=== PATIENT | male | born 1995 | race Caucasian/White ===

== ENCOUNTER 2016-10-01 04:32 | Observation (INO) | payer OTHER, BC ==
--- OUTSIDE RECORDS SUMMARY | 2016-10-01 04:46 | XMS REPORT | Continuity of Care Document ---
:1995 Author Organization [facility] ([facility]) Address [address] [place] [address] Phone [phone] Care Team Providers Name Role Phone Andre Noble Primary Care Provider [phone] Source Comments This disclosure is being made pursuant to the Care Everywhere program, applicable federal and state laws, and may not contain all informaitonavailable regarding this patient.[facility] ([facility]) Active Allergies and Adverse Reactions Allergen Noted Date Severity Reactions Comments Milk 02/11/2014 Angioedema Red Dye 12/04/2013 Urticaria (Hives),Angioedema Parents report it is an allergy to red dye number 5 that is in ham Current Medications Prescription Sig. Disp. Refills Start Date End Date Status omeprazole 40 mg Take 1 capsule 30 capsule 11 04/19/2016 Active enteric coated capsule (40 mg total) by mouth daily. fluticasone (FLOVENT 2 Puffs every 12 12 g 11 04/19/2016 Active HFA 220) inhaler hours. 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 Sinus bradycardia 02/12/2014 Resolved Problems Problem Noted Date Resolved Date Hematemesis 12/04/2013 12/04/2013 Esophageal bleeding 12/03/2013 12/04/2013 Most Recent Encounters Date Type Specialty Providers Description 07/26/2016 [facility] Pediatrics - Specialty Jacy, Dx: Esophagitis, Encounter Kenia Muse MD eosinophilic Doris Marcelino, (Primary Dx) Marquise Blanc RN 07/25/2016 Telephone Pediatrics - Specialty Doris Worthington Chief Comp: Procedure 07/25/2016 Anesthesia Event Pediatrics - Specialty Doris Marcelino CRNA 07/19/2016 Orders/Notes Pediatric Aditi Jalloh, Dx: Esophagitis, Gastroenterology YUNG eosinophilic (Primary Dx) 07/12/2016 Telephone Pediatric Radha Wilson, Chief Comp: Gastroenterology RN Scheduling Immunizations Name Dates Previously Given Next Due Influenza, quadrivalent PF 01/21/2014 Social History Tobacco Use Types Packs/Day Years Used Date Passive Smoke Exposure - Never Smoker Smokeless Tobacco: Never Used Alcohol Use Drinks/Week oz/Week Comments No Last Filed Vital Signs Vital Sign Reading Time Taken Blood Pressure 125/99 07/26/2016 11:30 AM CDT Pulse 45 04/19/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 Temperature 36 C (96.8 F) 07/26/2016 11:45 AM CDT Respiratory Rate 18 07/26/2016 8:15 AM CDT Height 1.805 m (5' 11.06") 07/26/2016 8:16 AM CDT Weight 83.5 kg (184 lb 1.4 oz) 07/26/2016 8:16 AM CDT Body Mass Index 25.63 07/26/2016 8:16 AM CDT Oxygen Saturation 100% 07/26/2016 11:30 AM CDT Plan of Care Date Type Specialty Providers Description 10/25/2016 Appointment Pediatric Jacy, Chief Comp: Patient Gastroenterology Kenia Muse MD Reported Reason For [address] [place] [address] [phone] (Fax) 03/06/2017 Appointment Pediatric Cardiology Felipe Hong, Chief Comp: Patient Justice Hinton MD Reported Reason For [address] [place] [address] [phone] (Fax) 03/06/2017 [facility] Pediatric Cardiology Felipe Hong, Dx: Atrioventricular Encounter Jutsice Hinton MD block, first degree [address] [place] [address] [phone] (Fax) 03/06/2017 Appointment Pediatric Cardiology Felipe Hong, Chief Comp: Patient Justice Hinton MD Reported Reason For [address] [place] [address] [phone] (Fax) Health Maintenance Due Date Last Done Comments Hepatitis B Vaccine (1 of 3 - Primary 1996 Series) HPV Vaccine (1 of 3 - Male 3 Dose 11/09/2007 Series) Tdap Vaccine 11/09/2007 Meningococcal Vaccine (1 of 1) 2012 Lipid Disorder Screening 2014 MMR Vaccine 2014 Td Vaccine 2014 Varicella Vaccine (1 of 2 - Adult - 2014 No Evidence of Immunity) Influenza Vaccine: Seasonal (Season 11/15/2016 03/03/2015 (Previously Ended) completed), 01/21/2014 Results from Last 3 Months ENDOSCOPY, PED UPPER GI (EGD) (08/01/2016 2:27 PM) Kenia Welsh MD 08/01/20162:27 PM PEDIATRIC GASTROENTEROLOGY- Upper endoscopy Pediatric Gastroenterology Name: Keara Li Dr. Aquino [facility] #:[id number] Procedure Location: [facility] Ped Procedure Unit Date: 1995; Age: 20 y.o.; Sex: male Procedure Date: 07/26/2016 INDICATION: Upper endoscopy to evaluate for EoE CONSENT FOR OPERATION OR PROCEDURE:Once the risks and benefits of this procedure were discussed with the patient's father and their questions were answered, written informed consent was obtained from the patient as he is 20. HISTORY OF PRESENT ILLNESS: Keara Li is a 20 y.o. male with a history of EoE and non-compliance now on regular use of fluticasone and omeprazole with no symptoms.This procedure is being performed to evaluate for improvement of EoE. PHYSICAL EXAM: ASA status 1. Exam as per nursing sedation team note. MEDICATION NOTES:As per nursing sedation team note. PHOTOGRAPH:Esophagus BIOPSY:Esophagus OPERATION/PROCEDURE: Upper endoscopy: The patient was placed in the left lateral position.Once the patient was comfortable and sedated, the throat was sprayed with 4% Lidocaine sprayand a bite block was placed in between the teeth.The patient's esophagus was easily intubated with an Olympus 190 endoscope.The endoscope was advanced throughout the esophagus.There were superficial ulcerations, linear furrowing, nodularity, edema of the esophagus. The endoscope was advanced into the stomach.The gastric mucosa appeared within normal limits. Air was removed from the stomach and the endoscope was pulled back into the esophagus.3 biopsies were taken from the distal esophagus and another 3 biopsies were taken from the mid esophagus.The endoscope was advanced back into the stomach and the remaining amount of air was removed.The endoscope was then completely removed, and the patient tolerated this procedure well without any complications. IMPRESSION: 1. Superficial ulcerations, linear furrowing, nodularity, edema of the esophagus PLAN:We explained our findings to the family after the procedure.We will notify them about the biopsy results once they are available. 08/01/16: Called and left message on mother's voicemail with results of biopsies - improved but still with changes consistent with EoE. I requested that the family call back with further info on how frequently Keara has been taking his medications. Referral to adult gastroenterology made - will continue to follow Keara until care is transferred. A. Esophagus, mid, biopsy: Squamous mucosa with epithelial reactive changes and increased intraepithelial eosinophils (up to 25 per HPF). See comment. B. Esophagus, distal, biopsy: Squamous mucosa with epithelial reactive changes and intraepithelial eosinophils (up to 3 per HPF). Cardia-type mucosa within normal limits. I have personally reviewed this case and edited the report as necessary. Kenia Ayala MD ESOPHAGOSCOPYwith biopsy, single or multiple ([id number]) SURGICAL PATHOLOGY EXAM (07/26/2016 10:06 AM) Component Value Range Case Report Surgical Pathology Case: [id number] Authorizing Provider:Kenia Ayala MD Collected: 07/26/2016 10:06 AM [facility] Hospital: Procedure & Diagnostic Suite Pathologist: Latrell Ma MD Specimens: A) - Esophagus, MID ESO B) - Esophagus, DISTAL ESO Diagnosis A.Esophagus, mid, biopsy: Squamous mucosa with epithelial reactive changes and increased intraepithelial eosinophils (up to 25 per HPF). See comment. B.Esophagus, distal, biopsy: Squamous mucosa with epithelial reactive changes and intraepithelial eosinophils (up to 3 per HPF). Cardia-type mucosa within normal limits. I have personally reviewed this case and edited the report as necessary. Comment The squamous mucosa shows reactive epithelial changes including spongiosis, papillary elongation, and basal hyperplasia. The eosinophils are present throughout the mucosa including surface involvement . Minimal clustering is present. There is degranulation. The findings are consistent with active eosinophilic esophagitis. The proximal biopsy shows greater involvement by eosinophils. The current spe cimen is compared to the patient's prior biopsy ([id number]), and shows mild improvement. Clinical Information 20 y.o. M with known EoE on swallowed fluticasone and asymptomatic. Specimens obtained: Esophagus (mid and distal) Visual impression: -Upper endoscopy: superficial ulcerations, linear furrowing, nodularity, edema of the esophagus If consistent with possible EoE, please provide detail on estimate of eosinophil count per HPF, epithelial clustering, degranulation, basal cell and/ or papillary hyperplasia Gross Description A.Received in formalin, in a container labeled [facility] number, and "MID ESO", are three oliveira-pink soft tissue fragments, 0.2 to 0.4 cm in greatest dimension. Submitted in toto in B1. LRD/rls B.Received in formalin, in a container labeled [facility] number, and "DISTAL ESO", are three oliveira-pink soft tissue fragments, 0.2 to 0.4 cm in greatest dimension. Submitted in toto in A1. LRD/rls Microscopic Description Microscopic examination performed and supports the diagnosis. Performed by: Anabella Rene MD, R2 Specimen Tissue - Esophagus
[2016-10-01 04:53] LABS: Hematocrit 43.9 % (42.0-52.0); Hemoglobin 15.3 gm/dL (13.5-18.0); Mean Cell Volume 91.6 fl (78-100); Mean Corpuscular Hemoglobin 31.9 pg (27-31); Mean Corpuscular Hgb Conc 34.9 g/dl (32-36); Mean Platelet Volume 10.6 fl (6.0-9.5); Neutrophil # 3.7 K/mm3 (1.3-6.0); Neutrophil % 53.4 % (42-75.0); Platelet Count 255 K/mm3 (150-450); Red Blood Count 4.79 M/mm3 (4.7-6.0); White Blood Count 6.9 K/mm3 (4.0-10.5)
[2016-10-01 04:58] LABS: INR 1.1 INR (0.90-1.10); Prothrombin Time (Patient) 11.4 Seconds (9.4-11.4)
[2016-10-01 05:03] LABS: Albumin * 3.9 gm/dl (3.4-5.0); Anion Gap 16.3 mmol/L (6.8-13.8); BUN/Creatinine Ratio 18.9 (9.0-21.6); Bilirubin, Total 0.8 mg/dL (0.0-1.1); Ca. Corrected For Albumin 8.7 mg/dL (8.4-10.2); Calcium * 8.9 mg/dL (7.9-10.9); Carbon Dioxide 24.2 mmol/L (24-32.6); Potassium 3.5 mmol/L (3.4-4.6); Total Protein 7.5 gm/dL (6.2-8.2)
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
[2016-10-01 05:37] LABS: Urine Bilirubin Negative (NEGATIVE); Urine Blood 250 /ul (NEGATIVE); Urine Ketone Negative (NEGATIVE); Urine Nitrite Negative (NEGATIVE); Urine Protein 15 mg/dL (NEGATIVE); Urine Specific Gravity 1.015 SP.GR. (1.005-1.030); Urine Urobilinogen Normal (NORMAL); Urine pH 5.5 pH (5.0-7.0)
[2016-10-01 05:44] LABS: Cocaine Ur Negative (NEGATIVE); Urine Barbiturate Negative (NEGATIVE); Urine Benzodiazepines Negative (NEGATIVE); Urine Opiates Negative (NEGATIVE); Urine PCP Negative (NEGATIVE); Urine THC Negative (NEGATIVE)
[2016-10-01 05:52] LABS: Urine Appearance Clear; Urine Bacteria None Seen; Urine Color Yellow; Urine WBC 0-5 /hpf (0-5)
[2016-10-01] MEDS ORDERED: MORPHINE SULFATE 4 MG/ML SYRG IV ONE (06:37)
[2016-10-01] MEDS ORDERED: MORPHINE SULFATE 4 MG/ML SYRG IV PRN (06:37)
[2016-10-01] MEDS ORDERED: HYDROcodone/ACETAMINOPHEN 1 EACH TABLET PO PRN (06:38)
[2016-10-01] MEDS ORDERED: HYDROcodone/ACETAMINOPHEN 1 EACH TABLET PO ONE (06:39)
[2016-10-01] MEDS ORDERED: ONDANSETRON HCL/PF 2 MG/ML VIAL IV PRN (06:40)
--- OUTSIDE RECORDS SUMMARY | 2016-10-01 06:40 | XMS REPORT | Continuity of Care Document ---
:1995 Author Organization [facility] ([facility]) Address [address] [place] [address] Phone [phone] Care Team Providers Name Role Phone Andre Noble Primary Care Provider [phone] Source Comments This disclosure is being made pursuant to the Care Everywhere program, applicable federal and state laws, and may not contain all informaitonavailable regarding this patient.[facility] ([facility]) Active Allergies and Adverse Reactions Allergen Noted [...] Encounters Date Type Specialty Providers Description 07/26/2016 [facility] Pediatrics - Specialty Jacy, Dx: Esophagitis, [...] AM CDT Pulse 45 04/19/2016 1:44 PM [employer]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 Temperature 36 C (96.8 F) 07/26/2016 11:45 [...] Reported Reason For [address] [place] [address] [phone] (Fax) 03/06/2017 Appointment Pediatric Cardiology Felipe Hong, Chief Comp: Patient Justice Hinton MD Reported Reason For [address] [place] [address] [phone] (Fax) 03/06/2017 [facility] Pediatric Cardiology Felipe Hong, Dx: Atrioventricular Encounter Justice Hinton MD block, first degree [address] [place] [address] [phone] (Fax) 03/06/2017 Appointment Pediatric Cardiology Felipe Hong, Chief Comp: Patient Justice Hinton MD Reported Reason For [address] [place] [address] [phone] (Fax) Health Maintenance Due Date Last Done [...] Pediatric Gastroenterology Name: Keara Li Dr. Aquino [facility] #:[id number] Procedure Location: [facility] Ped Procedure Unit Date: 1995; Age: 20 [...] Ayala MD ESOPHAGOSCOPYwith biopsy, single or multiple ([id number]) SURGICAL PATHOLOGY EXAM (07/26/2016 10:06 AM) Component Value Range Case Report Surgical Pathology Case: [id number] Authorizing Provider:Kenia Ayala MD Collected: 07/26/2016 10:06 AM [facility] Hospital: Procedure [...] is compared to the patient's prior biopsy ([id number]), and shows mild improvement. Clinical Information 20 [...] A.Received in formalin, in a container labeled [facility] number, and "MID ESO", are three oliveira-pink soft tissue fragments, 0.2 to 0.4 cm in greatest dimension. Submitted in toto in B1. LRD/rls B.Received in formalin, in a container labeled [facility], [facility] number, and "DISTAL ESO", are three oliveira-pink soft tissue fragments, 0.2 to 0.4 cm in greatest dimension. Submitted in toto in A1. LRD/rls Microscopic Description Microscopic examination performed and supports the diagnosis. Performed by: Anabella Rene MD, R2 Specimen Tissue - Esophagus
[2016-10-01] MEDS ORDERED: MORPHINE SULFATE 4 MG/ML SYRG ONE (06:43)
[2016-10-01] MEDS ORDERED: MORPHINE SULFATE 2 MG/ML DISP.SYRIN IV PRN (07:16)
[2016-10-01] MEDS: RINGERS SOLUTION,LACTATED 1,000 ML IV PRN ×2 (11:54→17:54)
[2016-10-01] MEDS: PANTOPRAZOLE SODIUM 40 MG TABLET.EC PO SCH (11:54)
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
[2016-10-01] MEDS: HYDROcodone/ACETAMINOPHEN 1 EACH TABLET PO PRN ×3 (13:28→22:02)
[2016-10-01] MEDS: BUDESONIDE 0.5 MG/2 ML VIAL.NEB IH SCH (18:25)
[2016-10-02] MEDS: RINGERS SOLUTION,LACTATED 1,000 ML IV PRN ×2 (02:38→09:36)
[2016-10-02] MEDS: BUDESONIDE 0.5 MG/2 ML VIAL.NEB IH SCH (06:03)
[2016-10-02] MEDS: PANTOPRAZOLE SODIUM 40 MG TABLET.EC PO SCH (06:16)
[2016-10-02] MEDS: HYDROcodone/ACETAMINOPHEN 1 EACH TABLET PO PRN (07:24)
[2016-10-02 09:30] VITALS: BP 108/43
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
== END 2016-10-02 13:20 | disposition home or self-care (01) ==
LOC: ER 04:32 → MS 06:35
PROVIDERS: ADMIT Specialist; ATTEND Specialist
PROC: 4A033R1 Measurement of Arterial Saturation, Peripheral, Percutaneous Approach (ICD-10-PCS; principal; 2016-10-01)
DX: S27.321A Contusion of lung, unilateral, initial encounter (principal); V49.88XA Car occupant (driver) (passenger) injured in other specified transport accidents, initial encounter; Y92.410 Unspecified street and highway as the place of occurrence of the external cause; S42.114A Nondisplaced fracture of body of scapula, right shoulder, initial encounter for closed fracture; R00.8 Other abnormalities of heart beat; F43.21 Adjustment disorder with depressed mood; E11.9 Type 2 diabetes mellitus without complications; K21.9 Gastro-esophageal reflux disease without esophagitis
CPT/HCPCS: 36415; 36600; 70450; 71010; 71020; 71260; 72125; 72170; 74178; 80053; 80307; 81001; 82150; 82803; 83690; 84484; 85025; 85610; 86850; 86900; 93005; 94640; 96374; 99283; G0378; G0481